=== PATIENT | male | born 1975 | race Caucasian/White ===

== ENCOUNTER 2022-01-19 01:58 | Day surgery (SDC) | payer BC, SELFPAY ==
[2021-12-31 15:34] VITALS: BMI 29.2
[2022-01-19 11:18] VITALS: BP 151/96; PULSE 93; RESP 20; TEMP 36.5; O2SAT 100; BMI 29.6
[2022-01-19] MEDS: LACTATED RINGERS 1,000 ML 150 ML IV CONT (11:26)
--- NOTE | 2022-01-19 11:31 | P.PNAN_ITS ---
Anes - Initial Pre Proc Eval Procedure: Operation Date: 01/19/22 12:30 Proposed Procedures p Screening Colonoscopy - Jin Muir MD Date/Time: 01/19/22 11:31 Surgeon: Jin Muir MD Pre Op Diagnosis: neoplasm screening Patient Data Age: 46 Gender: M Height: 1.75 m Weight: 91 kg Last Vital Signs Temp 36.5 C 01/19/22 11:18 Pulse 93 01/19/22 11:18 Resp 20 01/19/22 11:18 BP 151/96 H 01/19/22 11:18 Pulse Ox 100 01/19/22 11:18 O2 Del Method Room Air 01/19/22 11:18 Allergies Allergy/AdvReac Type Severity Reaction Status Date / Time No Known Allergies Allergy Verified 01/19/22 11:17 Home Medications Medication Instructions Recorded Confirmed Type sodium sul 1.479 gram-potas ch See Rx Instructions PO PER PKG DIR 12/03/21 12/31/21 Rx 0.188 gram-magnes sul 0.225 gram #24 tabs tablet (Sutab) Patient hx anesthesia problems: none Family hx anesthesia problems: none Results Review: All pre-operative results and documents have been reviewed as part of the pre- operative evaluation. [facility] Past Medical History Medical History (Updated 01/19/22 @ 11:32 by Jorden Gilliland MD) Overweight Surgical History Surgical History H/O hernia repair Family History Family History Grandparent Heart disease Cerebrovascular accident Cancer of unknown origin Social History Social History Smoking status: Never smoker Alcohol intake: current Drinks per week: 4 Living arrangements: with family Spiritual care concerns: No Anes - Eval Final PreProcedure Day of Procedure 01/19/22 11:31 Patient weight: overweight Heart: regular rate and rhythm Lungs: clear to auscultation Airway: Mallampati scale class 1 Neurological: alert and oriented Last oral intake: >/= 8 hours ASA classification: II Emergent: no Anesthetic plan: proceed Anesthesia type and monitoring: general GIVS and standard monitoring Results Review: All pre-operative results and documents have been reviewed as part of the pre- operative evaluation. Informed Consent: The patient's anesthetic plan and its attendant risks and benefits were discussed with the patient/family/POA. Questions were solicited and answers provided to the satisfaction of the patient/family/POA.
--- NOTE | 2022-01-19 11:51 | PM.HPGS ---
History of Present Illness History of Present Illness Consent: Risks, benefits, and alternatives have been discussed and questions answered. Patient agrees to proceed with procedure. Chief complaint: neoplasm screening Narrative: Nelson Hudson is a 46 year old male here for first screening colonoscopy Review of Systems Constitutional: Constitutional: Denies headache(s) and Denies weakness Eyes: Eyes: Denies blurry vision ENT: Reports Normal hearing present, Denies headache(s) and Denies neck pain Cardiovascular: Cardiovascular: Denies chest pain and Denies dyspnea Respiratory: Respiratory: Denies dyspnea Gastrointestinal: Gastrointestinal: Reports no additional gastrointestinal complaints Genitourinary: Genitourinary: Denies dysuria Musculoskeletal: Musculoskeletal: Denies neck pain Integumentary/Breasts: Skin/Breast: Denies dry skin Neurologic: Reports Normal hearing present, Denies headache(s) and Denies weakness Psychiatric: Psychiatric: Denies anxiety Endocrine: Endocrine: Denies change in body appearance Hematologic/Lymphatic: Hematologic/Lymphatic: Denies easy bleeding Allergic/Immunologic: Allergic/Immunologic: Denies urticaria [facility] Past Medical History Medical History (Updated 01/19/22 @ 11:32 by Jorden Gilliland MD) Overweight Surgical History Surgical History H/O hernia repair Family History Family History Grandparent Heart disease Cerebrovascular accident Cancer of unknown origin Social History Social History Smoking status: Never smoker Alcohol intake: current Drinks per week: 4 Living arrangements: with family Spiritual care concerns: No Meds Home Medications and Allergies Home Medications Medication Instructions Recorded Confirmed Type sodium sul 1.479 gram-potas ch See Rx Instructions PO PER PKG DIR 12/03/21 12/31/21 Rx 0.188 gram-magnes sul 0.225 gram #24 tabs tablet (Sutab) Allergies Allergy/AdvReac Type Severity Reaction Status Date / Time No Known Allergies Allergy Verified 01/19/22 11:17 Vital Signs Vital Signs - 24 hr 01/19/22 11:18 Temperature 97.7 F Pulse Rate 93 Respiratory Rate 20 Blood Pressure 151/96 H Pulse Oximetry 100 Oxygen Delivery Room Air Exam Const: General: comfortable and no acute distress HENMT: General nose exam: Normal nares present Eyes: General: appearance normal, both eyes and all related structures Neck: Neck: no JVD Resp: Auscultation: clear to auscultation bilaterally Cardio: Rate: regular rate Rhythm: regular rhythm GI: Inspection: non-distended GI Palp: Yes Soft to palpation Skin: General skin exam: normal color Neuro: General: gait normal Speech: normal speech Extrem: General: normal to inspection Psych: Mental Status: mental status grossly normal Assessment and Plan Assessment and plan (1) Screening for colon cancer: Code(s): Z12.11 - Encounter for screening for malignant neoplasm of colon Status: Acute Assessment and Plan: colonoscopy
[2022-01-19 12:12] VITALS: BP 113/76; PULSE 72; RESP 22; O2SAT 96
[2022-01-19 12:22] VITALS: BP 113/78; PULSE 81; RESP 20; O2SAT 99
[2022-01-19 12:32] VITALS: BP 117/85; PULSE 73; RESP 22; O2SAT 97
== END 2022-01-19 12:38 | disposition home or self-care (01) ==
PROVIDERS: PCP Internal Medicine; Visit Provider Internal Medicine Gastroenterology
PROC: 0DJD8ZZ Inspection of Lower Intestinal Tract, Via Natural or Artificial Opening Endoscopic (ICD-10-PCS; CPT 45378; principal; 2022-01-19 12:30)
DX: Z12.11 Encounter for screening for malignant neoplasm of colon (principal); K57.30 Diverticulosis of large intestine without perforation or abscess without bleeding; K64.8 Other hemorrhoids
CPT/HCPCS: 45380; 88305; J7120

== ENCOUNTER 2023-02-24 08:19 | Outpatient (CLI) | payer OTHER, SELFPAY ==
[2023-02-24 18:14] LABS: Basophils Absolute Auto 0.1 K/mm3 (0.0-0.1); Basophils Percent Auto 0.7 % (0.2-1.2); Eosinophils Absolute Auto 0.1 K/mm3 (0-0.3); Eosinophils Percent Auto 1.9 % (0-4.4); Hematocrit 47.1 % (42.0-52.0); Hemoglobin 16.1 g/dL (14.0-18.0); Immature Granulocyte Absolute 0.01 K/mm3 (0.00-0.031); Immature Granulocyte Percent A 0.1 % (0-0.5); Lymphocytes Absolute Auto 2.57 K/mm3 (0.9-3.2); Lymphocytes Percent Auto 36.8 % (18.3-44.2); Mean Corpuscular HGB Conc 34.2 g/dl (32-36); Mean Corpuscular Hemoglobin 31.8 pg (26-34); Mean Corpuscular Volume 92.9 fl (80-100); Mean Platelet Volume 10.9 fl (7.4-10.4); Monocytes Absolute Auto 0.6 K/mm3 (0.1-0.6); Neutrophils Absolute Auto 3.6 K/mm3 (1.3-6.7); Neutrophils Percent Auto 51.5 % (45.5-73.1); Platelet Count Result 230 k/mm3 (150-375); Red Blood Count 5.07 M/mm3 (4.6-6.20); Red Cell Distribution Width 12.4 % (11.5-14.5)
[2023-02-24 18:30] LABS: Alanine Aminotransferase 47 U/L (6-50); Albumin Level 4.6 g/dL (3.5-5.1); Alkaline Phosphatase 44 U/L (38-126); Anion Gap 8 mmol/L (8-16); Aspartate Amino Transferase 46 U/L (17-59); Bilirubin,Total 0.7 mg/dL (0.2-1.3); Blood Urea Nitrogen 18 mg/dL (9-20); Carbon Dioxide 26 mmol/L (22-30); Chloride 103 mmol/L (98-107); Cholesterol 203 mg/dL (0-200); Estimated Glomerular Filt Rate > 60; Glucose 100 mg/dL (65-110); HDL Direct 29 mg/dL; Potassium 4.1 mmol/L (3.4-5.0); Sodium 137 mmol/L (137-145); Triglycerides 153 mg/dL (<150)
[2023-02-24 18:42] LABS: LDL Cholesterol Direct 134 mg/dL
[2023-02-24 19:02] LABS: Prostate Specific Antigen 0.7 ng/mL (< OR = 4.0)
== END 2023-02-24 08:20 | disposition home or self-care (01) ==
LOC: ANHGOSHLAB 08:20
PROVIDERS: PCP Internal Medicine; Visit Provider Nurse Practitioner
DX: Z13.29 Encounter for screening for other suspected endocrine disorder (principal); Z12.5 Encounter for screening for malignant neoplasm of prostate; Z13.220 Encounter for screening for lipoid disorders
CPT/HCPCS: 36415; 80053; 80061; 84153; 85025; G0103

== ENCOUNTER 2024-01-31 15:34 | Emergency (ER) | payer OTHER, SELFPAY ==
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
[2024-01-31 15:43] VITALS: BP 155/86; PULSE 90; RESP 16; TEMP 36.4; O2SAT 100
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
== END 2024-01-31 17:23 | disposition home or self-care (01) ==
LOC: ANHED 17:13
PROVIDERS: Emergency Provider Nurse Practitioner Family; PCP Family Medicine
DX: S13.4XXA Sprain of ligaments of cervical spine, initial encounter (principal); S39.012A Strain of muscle, fascia and tendon of lower back, initial encounter; E66.3 Overweight; Z68.29 Body mass index [BMI] 29.0-29.9, adult; M47.814 Spondylosis without myelopathy or radiculopathy, thoracic region; M47.816 Spondylosis without myelopathy or radiculopathy, lumbar region; M50.31 Other cervical disc degeneration, high cervical region; V49.40XA Driver injured in collision with unspecified motor vehicles in traffic accident, initial encounter
CPT/HCPCS: 72040; 72100; 99283

== ENCOUNTER 2025-03-22 14:42 | Emergency (ER) | payer OTHER, SELFPAY ==
[2025-03-22 14:52] VITALS: BP 130/91; PULSE 86; RESP 18; TEMP 36.6; O2SAT 100
--- NOTE | 2025-03-22 15:05 | ED.URI ---
HPI - URI/Sore Throat General Chief Complaint: Upper Respiratory Infection Stated Complaint: SORE THROAT Time Seen by Provider: 03/22/25 15:05 History of Present Illness HPI Narrative: 49-year-old male presented for complaint of sore throat, runny nose and congestion. Onset 2 days. Denies shortness of breath, wheezing nausea, vomiting, fevers or lethargy. Related Data Home Medications ?Medication ?Instructions ?Recorded ?Confirmed ?Last Taken ?Type cholecalciferol (vitamin D3) PO 03/11/24 03/18/25 Unknown History mecobalamin (vitamin B12) PO 03/11/24 03/18/25 Unknown History super beets BYMOUTH 03/11/24 03/18/25 Unknown History Allergies Allergy/AdvReac Type Severity Reaction Status Date / Time No Known Allergies Allergy Verified 03/22/25 14:52 Review of Systems Review of Systems: CONSTITUTIONAL: Denies body aches, fever, chills, or sweats. EYES: Denies visual changes, redness, or discharge. ENT: reports sore throat rhinorrhea CARDIOVASCULAR: Denies chest pain, palpitations, or edema. RESPIRATORY: Denies dyspnea. GASTROINTESTINAL: Denies abdominal pain, nausea, vomiting, or diarrhea. SKIN: Denies rash NEUROLOGIC: Denies headache PMFSH Past Medical History Medical History Hypertension BMI 29.0-29.9,adult BMI greater than 30 Elevated BP without diagnosis of hypertension Overweight Surgical History Surgical History H/O hernia repair Family History Family History Grandparent Heart disease Cerebrovascular accident Cancer of unknown origin Social History Social History Smoking status: Never smoker Alcohol intake: current Drinks per week: 4 Lack of Transportation: No Lack of Food: Never True Current Housing: I Have Housing Concerned About Future Housing: No Difficulty Paying Gas/Electric Bills: No Difficulty Paying for Meds: No Currently Unemployed: No Education: Bachelor's Degree Difficulty w/ Childcare or Family Care: No Living arrangements: with family Spiritual care concerns: No Exam Narrative: GENERAL: well-appearing, no acute distress. EYES: conjunctivae clear ENT: Mucous membranes moist. TM pearly oliver with normal light reflex bilaterally; no tragal tenderness. Oropharynx not erythematous without lesions. Tonsils not enlarged and without exudate. No drooling, no hoarseness, no trismus, uvula midline. No tripod positioning, hot potato voice, or soft palate swelling. NECK: Supple. No lymphadenopathy CHEST: Clear to auscultation, breath sounds equal. No respiratory distress, speaks in full sentences. HEART: Regular rate and rhythm. No murmur heard. SKIN: Warm, dry, no rash. NEURO: Alert and oriented x3. Course Course Emergency Course: Patient is aware of diagnosis, understands and agrees to treatment plan. Anticipatory guidance given. Patient agrees to follow-up as directed and is aware of reasons to seek care at the emergency department. Portions of this record may have been created with voice recognition software Level of Care: Express Care Visit Vital Signs Vital signs: Vital Signs Temperature 97.8 F 03/22/25 14:52 Pulse Rate 86 03/22/25 14:52 Respiratory Rate 18 03/22/25 14:52 Blood Pressure 130/91 H 03/22/25 14:52 Pulse Oximetry 100 03/22/25 14:52 Oxygen Delivery Room Air 03/22/25 14:52 Temperature 97.8 F 03/22/25 14:52 Pulse Rate 86 03/22/25 14:52 Respiratory Rate 18 03/22/25 14:52 Blood Pressure 130/91 H 03/22/25 14:52 Pulse Oximetry 100 03/22/25 14:52 Oxygen Delivery Room Air 03/22/25 14:52 MDM - URI/Sore Throat MDM Narrative Medical decision making narrative: Discussed physical exam findings; neg strep, declined viral testing. Advised supportive measures and signs/symptoms to go to the ER. Pt is appropriate for outpt treatment and f/u. Differential Diagnosis Differential diagnosis: Likely upper respiratory infection, viral infection and pharyngitis Discharge Plan Discharge Clinical Impression: Upper respiratory infection Patient Disposition: Home Condition: Stable Instructions: Antibiotic Form, Upper Respiratory Infection (ED) Additional Instructions: Rapid strep swab was negative today You will be notified in a few days if the culture comes back positive for strep, and appropriate antibiotics will be called in at that time. if symptoms are due to a viral illness, it is not treated with antibiotics. Viral symptoms can be present for up to 10-14 days. Recommendations: Flonase spray and Zyrtec for sinus congestion Cough syrup may cause drowsiness; avoid driving or take it at night time. Tylenol every 8 hours as needed for pain/fever Soft foods, cool liquids, warm tea. Gargle with warm saltwater twice a day. Chloraseptic spray and throat lozenges. Rest and stay hydrated. --Follow up with your PCP --Go to the ER immediately if you cannot swallow your saliva, trouble breathing/wheezing, throat swelling, pain is persistent and severe Patient Language: Belgian Prescriptions: No Action losartan 50 mg tablet 50 mg PO DAILY Qty: 30 11RF cholecalciferol (vitamin D3) PO mecobalamin (vitamin B12) PO super beets BYMOUTH Follow-up/Referrals: Qamar Faye MD [Primary Care Provider, [facility]] Time of Disposition: 15:10
[2025-03-22 15:58] LABS: EDSTREPNEGPOS1 Negative (Negative)
== END 2025-03-22 15:15 | disposition home or self-care (01) ==
PROVIDERS: Emergency Provider Nurse Practitioner Family; PCP Family Medicine
DX: J06.9 Acute upper respiratory infection, unspecified (principal); I10 Essential (primary) hypertension
CPT/HCPCS: 87081; 87880; 99213; G0463